=== PATIENT | female | born 1990 | race Caucasian/White ===

== ENCOUNTER 2016-07-12 09:45 | Outpatient (CLI) | payer OTHER | END 2016-07-12 09:46 | disposition home or self-care (01) | DX: Z36 Encounter for antenatal screening of mother (principal) ==

== ENCOUNTER 2016-08-27 10:01 | Outpatient (CLI) | payer OTHER | END 2016-08-27 10:02 | disposition home or self-care (01) | DX: Z3A.34 34 weeks gestation of pregnancy (principal) ==

== ENCOUNTER 2016-09-11 23:15 | Outpatient (CLI) | payer OTHER ==
[2016-09-12] MEDS ORDERED: TERBUTALINE 1 MG/ML VIAL SUBQ ONE (00:04)
[2016-09-12 00:13] VITALS: BP 120/72
[2016-09-12 00:35] LABS: BILIRUBIN,URINE NEGATIVE (NEGATIVE); PH,URINE 6.5 PH (5.0-7.5)
[2016-09-12 00:43] LABS: UA CHARGE (STRIP ONLY) YES; UR CULTURE IF IND NOT INDICATED
== END 2016-09-12 00:42 | disposition home or self-care (01) ==
LOC: WFO 23:15 → OB 23:17 → WFO 09-12 00:42
PROVIDERS: ATTEND Obstetrics & Gynecology
DX: O47.03 False labor before 37 completed weeks of gestation, third trimester (principal); Z3A.36 36 weeks gestation of pregnancy
CPT/HCPCS: 59025; 81001; 81003; 87086; 87797; 96372; 99212

== ENCOUNTER 2016-10-01 23:55 | Outpatient (CLI) | payer OTHER ==
[2016-10-02 00:06] VITALS: BP 107/69
== END 2016-10-02 01:27 | disposition home or self-care (01) ==
LOC: WFO 23:55 → OB 23:56 → WFO 10-02 01:27
PROVIDERS: ATTEND Obstetrics & Gynecology
DX: O47.1 False labor at or after 37 completed weeks of gestation (principal); Z3A.39 39 weeks gestation of pregnancy
CPT/HCPCS: 99213

== ENCOUNTER 2016-10-03 13:48 | Outpatient (CLI) | payer OTHER ==
[2016-10-03 14:04] VITALS: BP 119/73
== END 2016-10-03 14:55 | disposition home or self-care (01) ==
LOC: WFO 13:48 → OB 13:49 → WFO 14:55
PROVIDERS: ATTEND Obstetrics & Gynecology
DX: Z34.83 Encounter for supervision of other normal pregnancy, third trimester (principal)
CPT/HCPCS: 99213

== ENCOUNTER 2016-10-09 21:32 | Outpatient (CLI) | payer OTHER ==
[2016-10-10 00:27] VITALS: BP 111/64
== END 2016-10-10 00:55 | disposition home or self-care (01) ==
LOC: WFO 21:32 → OB 21:34 → WFO 10-10 00:55
PROVIDERS: ATTEND Obstetrics & Gynecology
DX: Z34.83 Encounter for supervision of other normal pregnancy, third trimester (principal)
CPT/HCPCS: 99213

== ENCOUNTER 2016-10-10 08:25 | Inpatient (IN) | payer OTHER ==
[2016-10-10] MEDS ORDERED: SODIUM CHLORIDE FLUSH 0.9% 10 ML SYRINGE IVP PRN (08:46)
[2016-10-10] MEDS ORDERED: LIDOCAINE 1% 50 ML MDV ONE ×2 (08:49→09:04)
[2016-10-10] MEDS ORDERED: OXYTOCIN 10 UNIT/ML VIAL ONE (08:49)
[2016-10-10] MEDS ORDERED: OXYTOCIN/LACTATED RINGERS 250 ML IV ONE (08:51)
[2016-10-10] MEDS ORDERED: LACTATED RINGERS 1,000 ML IV SCH (09:00)
[2016-10-10 09:38] LABS: BASOPHILS # (AUTO) 0.1 10^3/uL (0.0-0.1); BASOPHILS % (AUTO) 0.5 %; EOSINOPHILS # (AUTO) 0.2 10^3/uL (0.0-0.7); EOSINOPHILS % (AUTO) 1.4 %; HCT - HEMATOCRIT 33.8 % (37.0-47.0); HGB - HEMOGLOBIN 11.1 g/dL (12.0-16.0); LYMPHOCYTES # (AUTO) 1.8 10^3/uL (1.5-3.5); LYMPHOCYTES % (AUTO) 11.1 %; MEAN CORPUSCULAR HEMOGLOBIN 26.9 pg (27.0-31.0); MEAN CORPUSCULAR HGB CONC 32.9 g/dL (32.0-36.0); MONOCYTES # (AUTO) 0.8 10^3/uL (0.0-1.0); MONOCYTES % (AUTO) 5.3 %; NEUTROPHILS # (AUTO) 13.1 10^3/uL (1.5-6.6); NEUTROPHILS % (AUTO) 81.7 %; RED BLOOD COUNT 4.12 10^6/uL (4.20-5.40); RED CELL DISTRIBUTION WIDTH 13.8 % (12.0-15.0)
--- NOTE | 2016-10-10 09:38 | HISTORY & PHYSICAL EXAMINATION ---
DATE OF ADMISSION: 10/10/2016 IDENTIFICATION: A 26-year-old G4, P1-1-1-2, with a 40 and 3/7 week intrauterine . EDC is with a 9-week ultrasound consistent with dates, LMP 01/01/2016. HISTORY OF PRESENT ILLNESS: This is a patient of [facility] who presented today with complaints of contractions. Initial cervical examination showed she was 9 cm dilated. The patient wa s actually here earlier, about 7 hours earlier she was 2 cm. She was discharged to home and returned. Currently, the baby's heart tones are in the 110s, with moderate long-term variability. She is contr acting approximately every 3-4 minutes. She desires natural delivery without an epidural. So far, paulie padmaja reports her membranes are intact and does not recall any vaginal bleeding. PAST MEDICAL HISTORY: None. PAST SURGICAL HISTORY: Upper lip for tumor at age 2. MEDICATIONS: Prenatals. ALLERGIES: NO KNOWN DRUG ALLERGIES. SOCIAL HISTORY: She is currently not smoking. She is a former smoker and quit less than a year ago. S he has daughters, Aden and Chris, and this is a female fetus with the anticipated name of Franco. PAST OBSTETRICAL HISTORY 1. Elective . 2. Spontaneous vaginal deliveries, the first one at 35 weeks, the second one at 41 weeks, largest bab y weighing 6 pounds 13 ounces. PAST GYNECOLOGIC HISTORY: She denies any abnormal Pap smears or sexually transmitted diseases. FAMILY HISTORY: Father had lymphoma. REVIEW OF SYSTEMS: Negative unless otherwise stated. OBJECTIVE VITAL SIGNS: Stable. She was afebrile. GENERAL: The patient is a well-developed, well-nourished female in some apparent distress d uring labor. She does feel pain appropriate. ABDOMEN: Gravid, nontender. Estimated weight is 7-1/2 to 8 pounds. LABORATORY DATA: labs show that 1 hour GTT is 107. Antibody screen is negative. Chlamydia an d gonorrhea are both negative. Quad screen is positive for trisomy 18. Blood type is O positive. Rube lla is immune, hepatitis B surface antigen is nonreactive, RPR is nonreactive, GBS is negative. ASSESSMENT 1. A 26-year-old G4, P1-1-1-2 with a 40 and 3/7 week intrauterine . 2. Active labor. PLAN 1. Admit. 2. CBC, type and hold. 3. Expect spontaneous vaginal delivery. 4. Routine care. JOB #: [id number] EXT JOB #:[id number]
[2016-10-10] MEDS ORDERED: MAGNESIUM HYDROXIDE 2,400 MG/30 ML UDC PO PRN (10:48)
[2016-10-10] MEDS ORDERED: SIMETHICONE CHEW 80 MG TABLET PO PRN (10:48)
[2016-10-10] MEDS ORDERED: WITCH HAZEL/GLYCERIN 1 EACH MED..PAD TOP PRN (10:48)
[2016-10-10] MEDS ORDERED: HYDROCORTISONE 1% CREAM 28 GM TUBE PR PRN (10:48)
[2016-10-10] MEDS ORDERED: OXYTOCIN 10 UNIT/ML VIAL IM ONE (10:48)
[2016-10-10] MEDS: CELECOXIB 100 MG CAPSULE PO SCH ×2 (11:38→21:05)
[2016-10-10] MEDS: HYDROcod/ACETAM 5/325 MG TABLET PO PRN ×2 (12:13→20:29)
[2016-10-10] MEDS ORDERED: SODIUM CHLORIDE FLUSH 0.9% 10 ML SYRINGE IVP SCH (14:00)
[2016-10-10] MEDS: DOCUSATE SODIUM 100 MG CAPSULE PO SCH (21:05)
[2016-10-11] MEDS: HYDROcod/ACETAM 5/325 MG TABLET PO PRN ×3 (00:39→20:05)
[2016-10-11] MEDS: CELECOXIB 100 MG CAPSULE PO SCH ×2 (08:36→20:59)
[2016-10-11] MEDS: DOCUSATE SODIUM 100 MG CAPSULE PO SCH ×2 (08:36→20:59)
--- NOTE | 2016-10-11 11:07 | PROVIDER PROGRESS NOTE ---
Subjective - Prog Note Date Prog Note Date: 10/11/16 Prog Note Time: 11:05 - Subjective Pt reports feeling: Improved Subjective: Late note. Saw patient this AM at about 9:30. Patient sitting in bed, changing baby's diaper, breast feeding baby. Sister Afshin at bedside. Patient has more pain with breast feeding. Took a vicodin. Bleeding decreasing. Ambulating and tolerating a regular diet. No nausea or vomiting. Able to void and happy she is now completely emptying her bladder. Two older children did require phototherapy for hyperbilirubinemia. Current Medications - Current Medications Current Medications: Routine Celebrex. PRN Tylenol and vicodin. Objective - Vital Signs/Intake & Output Reviewed Vital Signs: Yes Vital Signs: Vital Signs x48h Temp Pulse Resp BP Pulse Ox 10/11/16 07:46 97.5 F L 79 16 108/68 10/11/16 05:00 97.5 F L 70 16 105/69 98 - Objective General Appearance: positive: No acute distress Abdomen: positive: Non-tender Neurologic/Psychiatric: positive: Oriented x3 - Lab Results Fish Bones: 10/10/16 08:52 Assessment/Plan - Problem List (1) Vaginal delivery Impression: 26 yo S/p 10/10/2016 Normal recovery, doing well Routine care Discharge to home either later this PM or tomorrow, pending on baby's bilirubin Follow up with myself at [facility] in 6 weeks for a routine exam Call if worsening fevers, chills, vaginal bleeding or abdominal pain Rx written for home (vicodin, ibuprofen)
[2016-10-11] MEDS: ACETAMINOPHEN 325 MG TABLET PO PRN (17:21)
[2016-10-12 07:51] VITALS: BP 109/73
[2016-10-12] MEDS: ACETAMINOPHEN 325 MG TABLET PO PRN ×2 (07:52→12:14)
[2016-10-12] MEDS: HYDROcod/ACETAM 5/325 MG TABLET PO PRN (07:53)
[2016-10-12] MEDS: CELECOXIB 100 MG CAPSULE PO SCH (09:15)
[2016-10-12] MEDS: DOCUSATE SODIUM 100 MG CAPSULE PO SCH (09:15)
--- NOTE | 2016-10-12 10:33 | PROVIDER PROGRESS NOTE ---
Subjective - Prog Note Date Prog Note Date: 10/12/16 Prog Note Time: 10:31 - Subjective Pt reports feeling: Improved (Pt is breast feeding with out difficulty. Pain is 2/10) Objective - Vital Signs/Intake & Output Reviewed Vital Signs: Yes Vital Signs: Vital Signs x48h Temp Pulse Resp BP Pulse Ox 10/12/16 07:50 36.8 C 89 19 109/73 98 - Objective General Appearance: positive: No acute distress, Alert Respiratory: positive: Chest non-tender, No respiratory distress Cardiovascular: positive: Regular rate & rhythm, No murmur, No gallop Abdomen: positive: Non-tender, Nml bowel sounds, Mass (U-2) Back: negative: CVA tenderness (R), CVA tenderness (L) Extremities: negative: Calf tenderness, Shabana's sign/cords - Lab Results Fish Bones: 10/10/16 08:52 Assessment/Plan - Problem List (1) Vaginal delivery Impression: Pt is doing well Discharge Meds: Lanie Lewis
--- NOTE | 2016-10-12 10:41 | Discharge Plan ---
Discharge Plan Disposition: 01 Home, Self Care Condition: Good Diet: Regular Activity Restrictions: No Restrictions Shower Restrictions: No Driving Restrictions: No Weight Bearing: Full Weight No Smoking: If you smoke, Please STOP! Call for help.
--- NOTE | 2016-10-12 13:54 | Labor Flowsheet ---
Labor Flowsheet Datetime Report Generated by CPN: 10/12/2016 13:54 Datetime: 10/12/2016 07:41 VITAL SIGNS NBP Sys/Kaylie/Mean (mmHg): 109 : 73 : 81 Pulse: 85 COMMUNICATION LaborFlag: Labor Datetime: 10/12/2016 07:40 Temperature (F): 96.4 Temperature (C): 35.8 Temperature (C): 35.8 Datetime: 10/11/2016 07:37 SpO2 (%): 98 Datetime: 10/10/2016 10:20 STAGE 2 Pushing: Urge to Push; Involuntary Pushing Pushing Position: Pushing with Contractions; Pushing Lithotomy Pushing Progress: Descent with Pushing Datetime: 10/10/2016 10:00 Stage of : Labor UTERINE ACTIVITY Monitor Mode: External Frequency (min): 2-3 Quality: Strong Duration (sec): 60 Pattern: Normal: <= 5 Contractions in 10 Minutes Resting Tone (Palpate): Relaxed ASSESSMENT A Monitor Mode: External US FHR Baseline Rate : 140 FHR Baseline Changes: No Baseline Change Variability: Moderate 6-25 bpm Accelerations: 15X15 Decelerations: Variable Category: Category I VAGINAL EXAM Dilatation (cm): 10.0 Effacement (%): 100 Station: 2 Exam by: Dr. Krause Datetime: 10/10/2016 09:30 Membrane Status: Intact Vaginal Bleeding: Normal Show PATIENT CARE Comfort Measures: Breathing/Relaxation Datetime: 10/10/2016 09:00 Provider Reviewed Strip: Yes Strip Reviewed by: Dr. Krause
--- NOTE | 2016-11-03 18:45 | DELIVERY NOTE ---
Delivery Note - Instructions [place]/Slash: -Left hand click circles element as positive or present. -Right hand click slashes element as negative or not present. - Labor Labor: positive: Spontaneous - Delivery Method Infant Delivery Method: positive: Spontaneous vaginal delivery - Presentation Presentation: positive: Vertex, OA - occiput anterior - Nuchal Cord Nuchal Cord: positive: None - Amniotic Fluid Description Amniotic Fluid Description: positive: Clear - Episiotomy Type Episiotomy Type: positive: None - Laceration Laceration: positive: None - Delivery Outcome Delivery Outcome: positive: Livebirth - : positive: Placed in direct skin contact with mother sex: positive: Female : 9 : 9 - Cord Cord: positive: 3 vessels - Placenta Placenta: positive: Intact, Spontaneous - Estimated Blood Loss Estimated Blood Loss (in cc): 250 - Post Delivery Events Post Delivery Events: positive: No post delivery events - Delivery Comments (Free Text/Narrative) Delivery Comments (Free Text/Narrative): 26 yo with a 40w3d IUP presented in active labor. Initial RN CVE 9 cm. The patient spontaneously delivered (no epidural) a single viable female fetus "Franco". FOB Olimar present; friend Bhavana and daughter Nikko present for part of delivery. Apgars 9/9. Perineum intact without lacerations. Placenta delivered spontaneously, intact with 3VC. No complications. EBL 250 mL.
--- NOTE | 2016-11-13 15:56 | DISCHARGE SUMMARY ---
DATE OF ADMISSION: 10/10/2016 DATE OF DISCHARGE: 10/12/2016 ADMITTING DIAGNOSES: 1. A 40.3 weeks gestation. 2. Contractions. 3. Advanced dilatation. DISCHARGE DIAGNOSES: 1. A 40.3 weeks gestation. 2. Contractions. 3. Advanced dilatation. PROCEDURE: Spontaneous vaginal delivery. PRESENTING HISTORY: The patient is a 26-year-old G4, P1-1-1-2, who is 40.3 weeks gestational age. EDC was 10/07/2016. LMP 01/01/2016, confirmed with ultrasound at 9 weeks. She was seen earlier the day of admission, roughly 7 hours prior at which time her cervix was 2 cm. She was sent home. She presented back with contractions every 3 to 4 minutes with a cervical dilatation of roughly 9 cm. The patient requested to do her delivery vaginally without an epidural. Her OB history is positive for a delivery at 35 weeks, and then again at 41 weeks. Her physical examination showed a cervix which was 9 cm, 100% effaced. LABORATORY: On admission her white count was 16.0, hemoglobin was 11.1, hematocrit was 33.8, and platelets were 233. HOSPITAL COURSE: The patient admitted, allowed to labor, and very soon after admission delivered a live female , 's 9 and 9 weighing 7 pounds 10 ounces. The was delivered occiput anterior without the need of an epidural. She had no lacerations or episiotomy. Her course was unremarkable. Her diet was advanced. She was discharged to home on discharge medications of Percocet and Motrin. Mastitis, breast infection, contraception, as well as endometritis were all discussed with the patient. She was recommended to remain at pelvic rest for 6 weeks following delivery. JOB #: [id number] EXT JOB #:[id number] ELIECER
== END 2016-10-12 13:50 | disposition home or self-care (01) | DRG 775 ==
LOC: OB 08:25 → WFO 08:25 → OB 08:46
PROVIDERS: ADMIT Obstetrics & Gynecology; ATTEND Obstetrics & Gynecology
PROC: 10E0XZZ Delivery of Products of Conception, External Approach (ICD-10-PCS; principal; 2016-10-10)
DX: O48.0 Post-term pregnancy (principal); Z3A.40 40 weeks gestation of pregnancy; Z37.0 Single live birth
CPT/HCPCS: 85025; 99211; 99213

== ENCOUNTER 2016-11-27 09:41 | Outpatient (CLI) | payer OTHER | END 2016-11-27 09:42 | disposition home or self-care (01) | LOC: LAB 09:41 | PROVIDERS: ATTEND Obstetrics & Gynecology | DX: Z30.09 Encounter for other general counseling and advice on contraception (principal) | CPT/HCPCS: 36415; 84702 ==

== ENCOUNTER 2017-03-11 16:00 | Outpatient (CLI) | payer OTHER | END 2017-03-11 16:01 | disposition home or self-care (01) | LOC: LAB.R 16:00 | PROVIDERS: ATTEND Obstetrics & Gynecology | DX: R30.0 Dysuria (principal) | CPT/HCPCS: 81001; 87077; 87086 ==

== ENCOUNTER 2018-03-01 11:18 | Emergency (ER) | payer MEDICAID, OTHER ==
[2018-03-01] MEDS ORDERED: CLINDAMYCIN 150 MG CAPSULE PO STA (12:09)
[2018-03-01] MEDS ORDERED: BUPIVACAINE 0.5%-EPI 1:200000 PF 10 ML VIAL SUBQ STA (12:09)
--- NOTE | 2018-03-01 12:11 | ED Physician Documentation ---
PD HPI HEENT - Stated complaint Stated Complaint: SWOLLEN MOUTH - Chief complaint Chief Complaint: Heent - History obtained from History obtained from: Patient - History of Present Illness Timing - onset: Other (She is a long-standing implants on the right mandible and over the last couple of days it has become tender and swollen with jaw swelling as well. No fevers. No possibility of .) Review of Systems Constitutional: denies: Fever, Chills Ears: denies: Ear pain Nose: denies: Rhinorrhea / runny nose, Congestion Throat: reports: Dental pain / toothache. 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 - Present Medications Home Medications: Ambulatory Orders Medication Instructions Recorded Confirmed Clindamycin HCl [Clindamycin 150MG 2 tab PO QID #80 capsule 03/01/18 CAP] Oxycodone HCl/Acetaminophen 1 - 2 each PO Q6H PRN #14 tablet 03/01/18 [Percocet 5-325 mg Tablet] - Allergies Allergies/Adverse Reactions: Allergies Allergy/AdvReac Type Severity Reaction Status Date / Time No Known Drug Allergies Allergy Verified 01/31/16 10:57 - Social History Does the pt smoke?: Yes Smoking Status: Current every day smoker Does the pt drink ETOH?: No Does the pt have substance abuse?: No - Immunizations Immunizations are current?: Yes PD ED PE NORMAL - Vitals Vital signs reviewed: Yes - General General: Alert and oriented X 3, No acute distress - HEENT HEENT: Other (There is right facial swelling emanating from a abscess on the gumline related to a R mandibular premolar. Mild trismus, no submandibular swelling.) - Neck Neck: Supple, no meningeal sign, No bony TTP, No adenopathy - Neuro Neuro: Alert and oriented X 3, Normal speech Results - Vitals Vitals: Vital Signs - 24 hr 03/01/18 03/01/18 11:32 12:43 Temperature 36.5 C Heart Rate 101 H 145 H Respiratory 18 24 Rate Blood Pressure 126/90 H O2 Saturation 100 98 Oxygen O2 Source Room air Procedures - Abscess I&D (location) Dental R mandibular Preparation: Marcaine 0.5%, With epi (both local and inferior alveolar block) Incision: Incised with scalpel, Loculations broken. No: Purulent drainage, Irrigated, Packed Other: Antibiotic prescribed Departure - Departure Disposition: 01 Home, Self Care Clinical Impression: Dental abscess Condition: Good Record reviewed to determine appropriate education?: Yes Instructions: ED Dental Abscess Facial Cellulitis Prescriptions: Clindamycin HCl [Clindamycin 150MG CAP] 2 tab PO QID #80 capsule Oxycodone HCl/Acetaminophen [Percocet 5-325 mg Tablet] 1 - 2 each PO Q6H PRN #14 tablet PRN Reason: pain Comments: Followup with Dr Fausto ANDERSON, return if worse.
[2018-03-01 13:12] VITALS: BP 162/96
== END 2018-03-01 13:09 | disposition home or self-care (01) ==
LOC: ED 11:18
DX: K04.7 Periapical abscess without sinus (principal); F17.200 Nicotine dependence, unspecified, uncomplicated
CPT/HCPCS: 41800; 99283; A9270

== ENCOUNTER 2018-03-04 15:48 | Emergency (ER) | payer MEDICAID ==
--- NOTE | 2018-03-04 17:45 | ED Physician Documentation ---
PD HPI URI - Stated complaint Stated Complaint: SOA/CP - Chief complaint Chief Complaint: Resp - History obtained from History obtained from: Patient - History of Present Illness Timing - onset: How many weeks ago (has had nasal congestion with some green drainage for a week and also now some cough and dyspnea, with increasing wheezing. Has history of asthma, and feeling that the illness, along with her dog, are flaring the asthma. She has had the dog for 6 months or more without these symptoms this bad so feeling illness/allergies contributing as well.) Timing duration: Days Timing details: Gradual onset, Still present Associated symptoms: Nasal congestion, Rhinorrhea (purulent), Dyspnea. No: Fever, Sore throat, Swollen nodes Contributing factors: COPD / asthma. No: Sick contact, Immunocompromised Similar symptoms before: Has not had sx before Recently seen: Not recently seen Review of Systems Constitutional: denies: Fever, Chills, Myalgias Nose: reports: Rhinorrhea / runny nose, Congestion, Sinus pressure / pain Throat: denies: Sore throat Cardiac: denies: Chest pain / pressure Respiratory: reports: Dyspnea, Cough, Wheezing GI: denies: Abdominal Pain, Nausea, Vomiting, Diarrhea Skin: denies: Rash, Lesions PD PAST MEDICAL HISTORY - Past Medical History Past Medical History: No Cardiovascular: None Respiratory: Asthma Neuro: None Endocrine/Autoimmune: None - Past Surgical History Past Surgical History: Yes 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 - Present Medications Home Medications: Ambulatory Orders Medication Instructions Recorded Confirmed Clindamycin HCl [Clindamycin 150MG 2 tab PO QID #80 capsule 03/01/18 CAP] Oxycodone HCl/Acetaminophen 1 - 2 each PO Q6H PRN #14 tablet 03/01/18 [Percocet 5-325 mg Tablet] Albuterol Sulf [Ventolin Hfa 1 - 2 puffs INH Q4HR PRN #1 inhaler 03/04/18 Inhaler] Cephalexin [Keflex] 500 mg PO QID #24 capsule 03/04/18 Dexamethasone [Decadron] 4 mg PO DAILY #5 tablet 03/04/18 Oxycodone HCl/Acetaminophen 1 each PO Q6H PRN #15 tablet 03/04/18 [Percocet 5-325 mg Tablet] - Allergies Allergies/Adverse Reactions: Allergies Allergy/AdvReac Type Severity Reaction Status Date / Time No Known Drug Allergies Allergy Verified 03/04/18 15:57 - Social History Does the pt smoke?: Yes Smoking Status: Current every day smoker Does the pt drink ETOH?: Yes Does the pt have substance abuse?: No Substance Use and Type: Cocaine/Crack - Immunizations Immunizations are current?: No Immunizations: TDAP >10years/unknown PD ED PE NORMAL - Vitals Vital signs reviewed: Yes - General General: Alert and oriented X 3, No acute distress, Well developed/nourished - HEENT HEENT: Ears normal, Pharynx benign, Other (left sinus tender to percussion) - Neck Neck: Supple, no meningeal sign, No adenopathy - Cardiac Cardiac: RRR, No murmur - Respiratory Respiratory: No: Clear bilaterally (diffuse wheezing without coarse sounds. ) - Abdomen Abdomen: Soft, Non tender - Derm Derm: Normal color, Warm and dry, No rash - Extremities Extremities: No tenderness to palpate, Normal ROM s pain, No edema, No calf tenderness / cord - Neuro Neuro: Alert and oriented X 3, No motor deficit, Normal speech (able to talk in complete sentences) Results - Vitals Vitals: Oxygen O2 Source Room air PD MEDICAL DECISION MAKING - ED course Complexity details: re-evaluated patient (improved breathing with neb treatment. ), considered differential, d/w patient Departure - Departure Disposition: 01 Home, Self Care Clinical Impression: Chest tightness Dyspnea Qualifiers: Dyspnea type: shortness of breath Qualified Code(s): R06.02 - Shortness of breath; R06.00 - Dyspnea, unspecified; R06.01 - Orthopnea Sinusitis, acute Qualifiers: Sinusitis location: maxillary Recurrence: non-recurrent Qualified Code(s): J01.00 - Acute maxillary sinusitis, unspecified Condition: Stable Record reviewed to determine appropriate education?: Yes Instructions: ED Dyspnea Shortness of Breath Prescriptions: Albuterol Sulf [Ventolin Hfa Inhaler] 1 - 2 puffs INH Q4HR PRN #1 inhaler PRN Reason: Shortness Of Air/Wheezing Cephalexin [Keflex] 500 mg PO QID #24 capsule Dexamethasone [Decadron] 4 mg PO DAILY #5 tablet Oxycodone HCl/Acetaminophen [Percocet 5-325 mg Tablet] 1 each PO Q6H PRN #15 tablet PRN Reason: Pain Comments: Sorry for the delay in treatment here in the ER as we were unusually busy. The symptoms you are having could potentially be a cyst or reaction or allergy to the antibiotic. I do not think the infection is extending into the throat or chest. I would have you change from the clindamycin to cephalexin for the infection. Add Decadron for inflammation daily for the next 5 days. Use an albuterol inhaler 2-3 puffs 4 times a day for the next several days to week. Continue your pain medications as needed. Recheck if not improving over the next couple of days. Follow-up with a dentist as planned. Discharge Date/Time: 03/04/18 19:45
[2018-03-04] MEDS ORDERED: ALBUTEROL NEB 2.5 MG/3 ML INH STA (18:19)
[2018-03-04] MEDS ORDERED: DEXAMETHASONE 10 MG/ML VIAL PO STA (18:20)
[2018-03-04] MEDS ORDERED: oxyCODONE 5 MG TABLET PO STA (18:20)
[2018-03-04] MEDS ORDERED: cephALEXin 250 MG CAPSULE PO STA (18:20)
[2018-03-04 19:45] VITALS: BP 138/96
== END 2018-03-04 19:45 | disposition home or self-care (01) ==
LOC: ED 15:48
DX: J01.00 Acute maxillary sinusitis, unspecified (principal); R06.02 Shortness of breath; F17.200 Nicotine dependence, unspecified, uncomplicated; J45.909 Unspecified asthma, uncomplicated
CPT/HCPCS: 93005; 94640; 99283; A9270; 94664

== ENCOUNTER 2019-02-03 08:56 | Emergency (ER) | payer MEDICAID ==
[2019-02-03] MEDS ORDERED: KETOROLAC 60 MG/2 ML VIAL IM STA (10:42)
[2019-02-03] MEDS ORDERED: DEXAMETHASONE 10 MG/ML VIAL PO STA (10:42)
[2019-02-03] MEDS ORDERED: CHERRY SYRUP 10 ML UDC PO ONE (10:42)
--- NOTE | 2019-02-03 10:45 | ED Physician Documentation ---
PD HPI BACK PAIN - Stated complaint Stated Complaint: BACK PAIN - Chief complaint Chief Complaint: Back Pain - History obtained from History obtained from: Patient - History of Present Illness Timing - onset: How many days ago (3) Timing - duration: Days (3) Timing - details: Abrupt onset, Still present Location: Lower, Left Quality: Pain, Spasm, Sharp, Similar to prior episodes Associated symptoms: No: Fever, Weakness, Numbness, Incontinent of urine, Unable to urinate, Hematuria, Incontinent of stool Improves with: Rest, Position Worsened by: Movement Similar symptoms before: Diagnosis (back spasm) Recently seen: Not recently seen - Additional information Additional information: Previously well 28-year-old female developed some acute spasm in her lower back radiating on the left side down the left leg. She developed this 2 days ago and she has had this similarly previously and she rested for a day expecting this to resolve she had some improvement yesterday and this morning she is worse again. She states this is the worst that she is ever had it. Review of Systems Constitutional: denies: Fever Eyes: denies: Decreased vision Ears: denies: Ear pain Nose: denies: Congestion Throat: denies: Sore throat Respiratory: denies: Cough GI: denies: Nausea, Vomiting : denies: Dysuria, Frequency Skin: denies: Rash Musculoskeletal: reports: Back pain. 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 - Present Medications Home Medications: Ambulatory Orders Medication Instructions Recorded Confirmed Clindamycin HCl [Clindamycin 150MG 2 tab PO QID #80 capsule 03/01/18 CAP] Oxycodone HCl/Acetaminophen 1 - 2 each PO Q6H PRN #14 tablet 03/01/18 [Percocet 5-325 mg Tablet] Albuterol Sulf [Ventolin Hfa 1 - 2 puffs INH Q4HR PRN #1 inhaler 03/04/18 Inhaler] Cephalexin [Keflex] 500 mg PO QID #24 capsule 03/04/18 Oxycodone HCl/Acetaminophen 1 each PO Q6H PRN #15 tablet 03/04/18 [Percocet 5-325 mg Tablet] dexAMETHasone [Decadron] 4 mg PO DAILY #5 tablet 03/04/18 Cyclobenzaprine [Flexeril] 10 mg PO TID PRN #20 tablet 02/03/19 Hydrocodone/Acetaminophen 1 - 2 each PO Q6H PRN #14 tablet 02/03/19 [Hydrocodon-Acetaminophen 5-325] - Allergies Allergies/Adverse Reactions: Allergies Allergy/AdvReac Type Severity Reaction Status Date / Time No Known Drug Allergies Allergy Verified 02/03/19 09:06 - Social History Does the pt smoke?: Yes Smoking Status: Current every day smoker Does the pt drink ETOH?: Yes Does the pt have substance abuse?: No - Immunizations Immunizations are current?: No Immunizations: TDAP >10years/unknown PD ED PE NORMAL - General General: Alert and oriented X 3, Well developed/nourished, Other (appears to be in pain with hammer heater tone and flat affect. ) - HEENT HEENT: Atraumatic, PERRL, EOMI - Neck Neck: Supple, no meningeal sign - Respiratory Respiratory: No respiratory distress - Back Back: No CVA TTP, Other (There is tenderness to the paraspinous muscles on the left side extending into the sciatic notch. 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, No motor deficit, No sensory deficit, Normal speech Eye Opening: Spontaneous Motor: Obeys Commands Verbal: Oriented GCS Score: 15 - Psych Psych: Normal mood Results - Vitals Vitals: Vital Signs - 24 hr 02/03/19 02/03/19 09:02 11:36 Temperature 35.8 C L 36.6 C Heart Rate 106 H 93 Respiratory 16 12 Rate Blood Pressure 128/95 H 125/83 H O2 Saturation 97 95 Oxygen O2 Source Room air - Labs Labs: Laboratory Tests 02/03/19 12:15 Urine Color DARK YELLOW Urine Clarity CLOUDY Urine pH 6.0 Ur Specific [place] 1.025 Urine Protein NEGATIVE Urine Glucose (UA) NEGATIVE Urine Ketones NEGATIVE Urine Occult Blood NEGATIVE Urine Nitrite NEGATIVE Urine Bilirubin NEGATIVE Urine Urobilinogen 0.2 (NORMAL) Ur Leukocyte Esterase NEGATIVE Ur Microscopic Review INDICATED Urine Culture Comments Not Reportable Urine HCG, Qual NEGATIVE PD MEDICAL DECISION MAKING - ED course Complexity details: reviewed results, re-evaluated patient, considered differential, d/w patient ED course: 28 y/o female with acute back spams is administered toradal and decadron in the ED and we will place her on some pain medication and muscle relaxant. She has back pain and nausea and a urine is processed and extends the patient's ED visit. Departure - Departure Disposition: Home, Self Care Clinical Impression: Sciatica Qualifiers: Laterality: left Qualified Code(s): M54.32 - Sciatica, left side Condition: Stable Instructions: ED Sciatica Follow-Up: [facility] [Provider Group] Prescriptions: Cyclobenzaprine [Flexeril] 10 mg PO TID PRN #20 tablet PRN Reason: Spasms Hydrocodone/Acetaminophen [Hydrocodon-Acetaminophen 5-325] 1 - 2 each PO Q6H PRN #14 tablet PRN Reason: pain
[2019-02-03 13:17] LABS: BILIRUBIN,URINE NEGATIVE (NEGATIVE); GLUCOSE, URINE (UA) NEGATIVE (NEGATIVE); KETONES,URINE (UA) NEGATIVE (NEGATIVE); LEUKOCYTE ESTERASE, URINE NEGATIVE (NEGATIVE); NITRITE,URINE NEGATIVE (NEGATIVE); OCCULT BLOOD,URINE NEGATIVE (NEGATIVE); PROTEIN,URINE NEGATIVE (NEGATIVE); UROBILINOGEN,URINE 0.2 (NORMAL) E.U./dL (NORMAL)
[2019-02-03 13:19] LABS: CLARITY,URINE CLOUDY (CLEAR); HCG UR QUAL NEGATIVE
[2019-02-03 13:40] LABS: BACTERIA,URINE Moderate /HPF (None Seen); RBC,URINE 0-5 /HPF (0-5); SQUAMOUS EPITHELIAL CELL,UR MOD Squamous (<= Few)
[2019-02-03] MEDS ORDERED: HYDROcod/ACETAM 5/325 MG TABLET PO STA (13:43)
[2019-02-03 13:53] VITALS: BP 115/66
== END 2019-02-03 13:55 | disposition home or self-care (01) ==
LOC: ED 08:56
DX: M54.32 Sciatica, left side (principal); F17.200 Nicotine dependence, unspecified, uncomplicated
CPT/HCPCS: 81001; 81025; 96372; 99283; 99284; A9270; 81003; 87086

== ENCOUNTER 2019-11-28 14:52 | Emergency (ER) | payer MEDICAID ==
[2019-11-28 15:02] VITALS: BP 129/87
--- NOTE | 2019-11-28 15:41 | ED Physician Documentation ---
History of Present Illness - Stated complaint Stated Complaint: LT ARM TINGLING/FINGER NUMBNESS - Chief complaint Chief Complaint: Ext Problem - History obtained from History obtained from: Patient - Additonal information Additional information: Patient comes emergency department complaining of left arm numbness that started this morning. Patient states that at first, she is noticed some numbness in her fingers and her hand. She thought her watch was too tight so she took it off but it did not help. Patient states that the numbness has progressed throughout the day and now involves her shoulder. Patient states she does not have any history of shoulder problems. She has a history of "neck problems" for a number of years but no specific injury. She states that for the last several days she has had a lot of tightness on the left side of her neck and has not been able to turn her head all the way to the right because it hurts and feels tight. Patient states, however, that the symptoms seemed a little better today. She states this is never happened to her before. No sensory loss anywhere else. Patient denies any motor loss, though she states it is somewhat difficult to do things with her left arm and hand because she cannot feel that she is doing. No other focal neurologic deficits. No other complaints at this time. Patient denies any repetitive movements with her left upper extremity. No history of impingement syndromes such as carpal tunnel. Review of Systems Ten Systems: 10 systems reviewed and negative Constitutional: reports: Reviewed and negative Eyes: reports: Reviewed and negative Ears: reports: Reviewed and negative Nose: reports: Reviewed and negative Throat: reports: Reviewed and negative Cardiac: reports: Reviewed and negative Respiratory: reports: Reviewed and negative GI: reports: Reviewed and negative : reports: Reviewed and negative Skin: reports: Reviewed and negative Musculoskeletal: reports: Neck pain Neurologic: reports: Numbness Psychiatric: reports: Reviewed and negative Endocrine: reports: Reviewed and negative Immunocompromised: reports: Reviewed and negative PD PAST MEDICAL HISTORY - Past Medical History Past Medical History: Yes Cardiovascular: None Respiratory: Asthma Neuro: None Endocrine/Autoimmune: None - Past Surgical History Past Surgical History: Yes 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 Medications Home Medications: Ambulatory Orders Medication Instructions Recorded Confirmed Clindamycin HCl [Clindamycin 150MG 2 tab PO QID #80 capsule 03/01/18 CAP] Oxycodone HCl/Acetaminophen 1 - 2 each PO Q6H PRN #14 tablet 03/01/18 [Percocet 5-325 mg Tablet] Albuterol Sulf [Ventolin Hfa 1 - 2 puffs INH Q4HR PRN #1 inhaler 03/04/18 Inhaler] Cephalexin [Keflex] 500 mg PO QID #24 capsule 03/04/18 Oxycodone HCl/Acetaminophen 1 each PO Q6H PRN #15 tablet 03/04/18 [Percocet 5-325 mg Tablet] dexAMETHasone [Decadron] 4 mg PO DAILY #5 tablet 03/04/18 Cyclobenzaprine [Flexeril] 10 mg PO TID PRN #20 tablet 02/03/19 Hydrocodone/Acetaminophen 1 - 2 each PO Q6H PRN #14 tablet 02/03/19 [Hydrocodon-Acetaminophen 5-325] Cyclobenzaprine [Flexeril] 10 mg PO TID PRN #20 tablet 11/28/19 Ibuprofen [Motrin] 800 mg PO Q8H PRN #30 tablet 11/28/19 - Allergies Allergies/Adverse Reactions: Allergies Allergy/AdvReac Type Severity Reaction Status Date / Time No Known Drug Allergies Allergy Verified 11/28/19 15:01 - Social History Does the pt smoke?: Yes Smoking Status: Current every day smoker Does the pt drink ETOH?: Yes Does the pt have substance abuse?: No - Immunizations Immunizations are current?: No Immunizations: TDAP >10years/unknown - POLST Patient has POLST: No PD ED PE NORMAL - Vitals Vital signs reviewed: Yes - General General: Alert and oriented X 3, No acute distress - HEENT HEENT: Atraumatic, PERRL, EOMI, Moist mucous membranes - Neck Neck: Supple, no meningeal sign, Other (Patient has some degree of muscle spasm along her left trapezius distribution. Palpation of the left trapezius causes tingling and "an electric shock" feeling down the left arm during exam, patient reports.) - Cardiac Cardiac: RRR, No murmur - Respiratory Respiratory: Clear bilaterally - Abdomen Abdomen: Soft, Non tender, Non distended - Back Back: No spinal TTP - Derm Derm: Normal color, Warm and dry, No rash - Extremities Extremities: No deformity, No tenderness to palpate - Neuro Neuro: Alert and oriented X 3, Other (Generalized loss of sensation to soft, sharp, and temperature sensation, with patchy breakthrough of at least partially intact sensation throughout the patient's LUE. Sensation returns about 4 cm from C-spine in trapezius) - Psych Psych: Normal mood, Normal affect Results - Vitals Vitals: Oxygen O2 Source Room air - Rads (name of study) c-spine XR series Radiology: Final report received, EMP read indepedently, See rad report (unremarkable except for reverse lordosis, indicative of cervical muscle spasm) L shoulder XR series Radiology: Final report received, EMP read indepedently, See rad report (unremarkable.) PD MEDICAL DECISION MAKING - ED course Complexity details: reviewed results, re-evaluated patient, considered differential, d/w patient ED course: Given the distribution of the patient's sensory loss and palpation of the trapezius causing tingling, I suspected nerve impingement syndrome. Patient was also very low risk for CVA and had no other neurologic symptoms. Patient was sent for x-rays of the neck and left shoulder, which were unremarkable. We discussed that anti-inflammatories, as well as potentially a muscle relaxant or steroid would be most helpful for impingement. We have also discussed the need for follow-up if the patient's symptoms do not resolve over the next week. Patient is agreeable to the plan. Departure - Departure Disposition: 01 Home, Self Care Clinical Impression: Cervical nerve root impingement, Trapezius muscle spasm Condition: Stable Instructions: Impingement Syndrome, ED Spasm Neck No Injury Prescriptions: Cyclobenzaprine [Flexeril] 10 mg PO TID PRN #20 tablet PRN Reason: Spasms Ibuprofen [Motrin] 800 mg PO Q8H PRN #30 tablet PRN Reason: PAIN &/OR FEVER Comments: Your x-rays show signs of muscle spasm in your neck. This is indicated by the curvature of your spine, which is the reverse of what it should be. The radiologist has noted that this is usually seen in cases of muscle spasm. As s uch, it is very likely that the numbness and tingling in your arm is due to compression from spasm muscles of the nerves as they exit your neck. The best treatment for this is anti-inflammatories and something to relax her muscles. Massage and stretching is also very helpful. Please follow-up with your primary care physician if your symptoms continue for more than the next several days, as you may need to be referred for physical therapy or discuss whether MRI is appropriate. Discharge Date/Time: 11/28/19 16:44
--- NOTE | 2019-11-28 16:22 | XRAY Report ---
PROCEDURE: Shoulder 3 View LT INDICATIONS: pain/paresthesias L shoulder/arm TECHNIQUE: 3 views of the shoulder were acquired. COMPARISON: Correlation is made with the complete cervical spine radiographs 11/28/2019. FINDINGS: Bones: No fractures or dislocations. No suspicious bony lesions. Visualized ribs appear intact. Soft tissues: No suspicious soft tissue calcifications. The visualized lung demonstrates a normal a ppearance. IMPRESSION: No significant plain film abnormality of the shoulder is seen. If it would be helpful for clinical management decision making, please consider a dedicated shoulder MRI for further evaluation (assuming that there is no contraindication). If there is strong clinical concern for labral pathology, then please consider performing this according to the arthrogram protoc ol. Reviewed by: Aquiles Gonzalez MD on 11/28/2019 3:21 PM [facility] Approved by: Aquiles Gonzalez MD on 11/28/2019 3:21 PM [facility] Station ID: [id number]
--- NOTE | 2019-11-28 16:24 | XRAY Report ---
PROCEDURE: Cervical Spine 2 View INDICATIONS: pain/paresthesias TECHNIQUE: 3 view(s) of the cervical spine were acquired. COMPARISON: Correlation is made with the accompanying shoulder plain films. FINDINGS: Bones: No fractures or dislocations to the C7 level. The lateral masses of C1 appear intact on the odontoid view. No suspicious bony lesions. There is reversal of the normal cervical lordosis, with the apex at the C5-C6 level. The disc heights are well preserved. Soft tissues: No prevertebral soft tissue swelling. The visualized lung demonstrates a normal appea danisha. IMPRESSION: Reversal of the normal cervical lordosis is seen. This is commonly observed in patients with muscular spasm. Reviewed by: Aquiles Gonzalez MD on 11/28/2019 3:22 PM [facility] Approved by: Aquiles Gonzalez MD on 11/28/2019 3:22 PM [facility] Station ID: [id number]
== END 2019-11-28 16:44 | disposition home or self-care (01) ==
LOC: ED 14:52
DX: G56.92 Unspecified mononeuropathy of left upper limb (principal); M62.838 Other muscle spasm; M54.2 Cervicalgia; F17.200 Nicotine dependence, unspecified, uncomplicated
CPT/HCPCS: 72040; 99284

== ENCOUNTER 2019-12-28 10:51 | Outpatient (CLI) | payer MEDICAID ==
[2019-12-28 11:10] LABS: BASOPHILS # (AUTO) 0.1 10^3/uL (0.0-0.1); BASOPHILS % (AUTO) 0.6 %; EOSINOPHILS # (AUTO) 0.4 10^3/uL (0.0-0.7); EOSINOPHILS % (AUTO) 3.6 %; HGB - HEMOGLOBIN 13.9 g/dL (12.0-16.0); LYMPHOCYTES # (AUTO) 3.1 10^3/uL (1.5-3.5); LYMPHOCYTES % (AUTO) 28.5 %; MEAN CORPUSCULAR HEMOGLOBIN 27.8 pg (27.0-31.0); MEAN CORPUSCULAR HGB CONC 31.5 g/dL (32.0-36.0); MEAN CORPUSCULAR VOLUME 88.2 fL (81.0-99.0); MEAN PLATELET VOLUME 10.3 fL (7.9-10.8); MONOCYTES # (AUTO) 0.9 10^3/uL (0.0-1.0); MONOCYTES % (AUTO) 8.5 %; NEUTROPHILS # (AUTO) 6.4 10^3/uL (1.5-6.6); NEUTROPHILS % (AUTO) 58.3 %; PLT - PLATELET COUNT 283 10^3/uL (130-450); RED CELL DISTRIBUTION WIDTH 13.3 % (12.0-15.0); WHITE BLOOD COUNT 10.9 x10^3/uL (4.8-10.8)
[2019-12-28 11:28] LABS: ALBUMIN 4.6 g/dL (3.2-5.5); ALBUMIN/GLOBULIN RATIO 1.4 (1.0-2.2); ALKALINE PHOSPHATASE 115 IU/L (42-121); ALT ALANINE AMINOTRANSFERASE 75 IU/L (10-60); AST ASPARTATE AMINOTRANSFERASE 47 IU/L (10-42); BILIRUBIN,TOTAL 0.9 mg/dL (0.2-1.0); BUN - BLOOD UREA NITROGEN 7 mg/dL (6-20); CALCIUM 9.4 mg/dL (8.5-10.3); CARBON DIOXIDE - CO2 27 mmol/L (21-32); CHLORIDE 103 mmol/L (101-111); CHOL/HDL RATIO 4.8 (<4.4); CHOLESTEROL 182 mg/dL; CREATININE 0.7 mg/dL (0.4-1.0); GLUCOSE 97 mg/dL (70-100); HDL CHOLESTEROL 38 mg/dL; LDL CHOLESTEROL,CALCULATED 109 mg/dL; LDL/HDL RATIO 2.9 (<4.4); SODIUM 137 mmol/L (135-145); TOTAL PROTEIN 7.9 g/dL (6.7-8.2); VLDL CHOLESTEROL 35 mg/dL
[2019-12-28 11:39] LABS: FREE T3 4.04 pg/mL (2.5-3.9)
--- NOTE | 2019-12-28 11:58 | XRAY Report ---
PROCEDURE: ThoracoLumbar 2 View INDICATIONS: LAB DRAW,CHRONIC BACK PAIN TECHNIQUE: 2 views acquired of the thoracolumbar spine. COMPARISON: None FINDINGS: Bones: Normal vertebral body height and alignment. Degenerative changes in the thoracic spine. Mild d isc height loss at L4-L5 and L5-S1 with trace facet hypertrophy. Sacroiliac joints are normal. Soft tissues: No suspicious soft tissue calcifications. Included portions of the lungs are clear. I ntrauterine device contraceptive noted. IMPRESSION: Mild degenerative changes in the lower lumbar spine. No malalignment or scoliosis. Reviewed by: Harley Drummond MD on 12/28/2019 11:57 AM PDT Approved by: Harley Drummond MD on 12/28/2019 11:57 AM PDT Station ID: [id number]
== END 2019-12-28 10:52 | disposition home or self-care (01) ==
LOC: LAB 10:51 → DI 10:52
PROVIDERS: ATTEND Nurse Practitioner
DX: Z00.00 Encounter for general adult medical examination without abnormal findings (principal); M51.36 Other intervertebral disc degeneration, lumbar region; M51.34 Other intervertebral disc degeneration, thoracic region; R63.5 Abnormal weight gain; Z82.49 Family history of ischemic heart disease and other diseases of the circulatory system; Z13.228 Encounter for screening for other metabolic disorders; Z13.29 Encounter for screening for other suspected endocrine disorder
CPT/HCPCS: 36415; 72080; 80050; 80061; 83721; 84481

== ENCOUNTER 2020-04-05 12:08 | Outpatient (CLI) | payer MEDICAID | END 2020-04-05 12:09 | disposition home or self-care (01) | LOC: COV 12:08 | PROVIDERS: ATTEND Family Medicine | DX: R05 Cough (principal); R06.02 Shortness of breath; R06.2 Wheezing; R68.83 Chills (without fever); J02.9 Acute pharyngitis, unspecified; R19.7 Diarrhea, unspecified; R43.8 Other disturbances of smell and taste; R09.81 Nasal congestion; J34.89 Other specified disorders of nose and nasal sinuses; R11.2 Nausea with vomiting, unspecified; Z20.828 Contact with and (suspected) exposure to other viral communicable diseases ==

== ENCOUNTER 2020-09-29 09:22 | Emergency (ER) | payer OTHER, MEDICAID ==
[2020-09-29] MEDS ORDERED: MORPHINE 10 MG/ML VIAL IVP STA (09:45)
[2020-09-29] MEDS ORDERED: DEXAMETHASONE 10 MG/ML VIAL IVP STA (09:49)
--- NOTE | 2020-09-29 09:49 | ED Physician Documentation ---
History of Present Illness - Stated complaint Stated Complaint: LT LEG PX/NUMB - Chief complaint Chief Complaint: Back Pain - History obtained from History obtained from: Patient - Additonal information Additional information: 30-year-old woman with 3 years of chronic back pain presents with groin numbness and incontinence of stool this morning. Patient states that she woke up with severe lower back pain and was on her way to the bathroom when she involuntarily pooped on herself. This is never happened before. She also is endorsing numbness today groin and left leg radiating downward from the gluteal region. Denies fevers, recent traumatic injury. She saw Dr. Velez this past friday and was given a steroid dose back and muscle relaxer script without relief. Review of Systems Constitutional: denies: Fever : reports: Other (fecal incontinence) Musculoskeletal: reports: Back pain Neurologic: reports: Numbness. 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 - Present Medications Home Medications: Ambulatory Orders Medication Instructions Recorded Confirmed Ibuprofen [Motrin] 800 mg PO Q8H PRN #30 tablet 11/28/19 09/29/20 Methocarbamol [Robaxin-750] 750 mg PO PRN PRN 09/29/20 09/29/20 Methylprednisolone [Medrol Dose 1 each PO .PACKAGEINSTRUCTIONS 09/29/20 09/29/20 Pack] - Allergies Allergies/Adverse Reactions: Allergies Allergy/AdvReac Type Severity Reaction Status Date / Time No Known Drug Allergies Allergy Verified 09/29/20 09:30 - Social History Does the pt smoke?: Yes Smoking Status: Current every day smoker Does the pt drink ETOH?: Yes Does the pt have substance abuse?: No - Immunizations Immunizations are current?: No Immunizations: TDAP >10years/unknown - POLST Patient has POLST: No PD ED PE NORMAL - Vitals Vital signs reviewed: Yes - General General: Alert and oriented X 3, Other (moderate distress) - HEENT HEENT: Atraumatic, PERRL, EOMI - Neck Neck: No bony TTP - Back Back: Other (midlumbar/sacral ttp) - Derm Derm: Normal color, Warm and dry - Extremities Extremities: No deformity, Other (2+ BL DP pulses. LLE diminished strength compared to R. ) - Neuro Neuro: Alert and oriented X 3, Other (perineal numbness on exam. ) - Psych Psych: Normal mood, Normal affect Results - Vitals Vitals: Vital Signs - 24 hr 09/29/20 09/29/20 09:26 10:10 Temperature 36.4 C L Heart Rate 109 H 99 Respiratory 16 18 Rate Blood Pressure 150/100 H 150/109 H O2 Saturation 97 96 Oxygen O2 Source Room air - Labs Labs: Laboratory Tests 09/29/20 09/29/20 09:50 09:50 WBC 17.5 H RBC 4.80 Hgb 13.3 Hct 41.5 MCV 86.5 MCH 27.7 MCHC 32.0 RDW 13.2 Plt Count 335 MPV 10.1 Neut # (Auto) 15.5 H Lymph # (Auto) 1.1 L [place] # (Auto) 0.8 Eos # (Auto) 0.0 Baso # (Auto) 0.0 Absolute Nucleated RBC 0.00 Nucleated RBC % 0.0 Sodium 139 Potassium 3.9 Chloride 104 Carbon Dioxide 23 Anion Gap 12.0 BUN 13 Creatinine 0.6 Estimated GFR (MDRD) 117 Glucose 113 H Calcium 9.7 Total Bilirubin 0.5 AST 27 ALT 37 Alkaline Phosphatase 106 Total Protein 8.1 Albumin 4.5 Globulin 3.6 Albumin/Globulin Ratio 1.3 Lipase 19 L PD MEDICAL DECISION MAKING - ED course ED course: 10am- patient threw up. will give liliana d/w Dr. Lawrence for ED transfer for emergent MRI Departure - Departure Disposition: 02 Transfer Acute Care Hosp Clinical Impression: Incontinent of feces, Numbness of perineum, Back pain Condition: Serious
[2020-09-29 09:56] LABS: BASOPHILS % (AUTO) 0.2 %; EOSINOPHILS % (AUTO) 0.2 %; HCT - HEMATOCRIT 41.5 % (37.0-47.0); HGB - HEMOGLOBIN 13.3 g/dL (12.0-16.0); LYMPHOCYTES # (AUTO) 1.1 10^3/uL (1.5-3.5); LYMPHOCYTES % (AUTO) 6.2 %; MEAN CORPUSCULAR HEMOGLOBIN 27.7 pg (27.0-31.0); MEAN CORPUSCULAR VOLUME 86.5 fL (81.0-99.0); MEAN PLATELET VOLUME 10.1 fL (7.9-10.8); MONOCYTES # (AUTO) 0.8 10^3/uL (0.0-1.0); MONOCYTES % (AUTO) 4.5 %; NEUTROPHILS # (AUTO) 15.5 10^3/uL (1.5-6.6); NEUTROPHILS % (AUTO) 88.5 %; PLT - PLATELET COUNT 335 10^3/uL (130-450); RED CELL DISTRIBUTION WIDTH 13.2 % (12.0-15.0); WHITE BLOOD COUNT 17.5 x10^3/uL (4.8-10.8)
[2020-09-29] MEDS ORDERED: ONDANSETRON 4 MG/2 ML VIAL IVP STA (10:02)
[2020-09-29 10:09] LABS: ALBUMIN 4.5 g/dL (3.2-5.5); ALBUMIN/GLOBULIN RATIO 1.3 (1.0-2.2); BILIRUBIN,TOTAL 0.5 mg/dL (0.2-1.0); CALCIUM 9.7 mg/dL (8.5-10.3); CREATININE 0.6 mg/dL (0.4-1.0); POTASSIUM 3.9 mmol/L (3.5-5.0); TOTAL PROTEIN 8.1 g/dL (6.7-8.2)
[2020-09-29 11:14] VITALS: BP 132/91
[2020-09-29 11:23] LABS: B. PARAPERTUSSIS- RESP PCR PAN NOT DETECTED; B. PERTUSSIS- RESP PCR PANEL NOT DETECTED; C. PNEUMONIAE- RESP PCR PANEL NOT DETECTED; CORONAVIRUS 229E-RESP PCR NOT DETECTED; CORONAVIRUS HKU1-RESP PCR NOT DETECTED; CORONAVIRUS NL63-RESP PCR NOT DETECTED; CORONAVIRUS OC43-RESP PCR NOT DETECTED; HUMAN METAPNEUMOVIRUS NOT DETECTED; INFLUENZA A- RESP PCR PANEL NOT DETECTED; INFLUENZA B - RESP PCR PANEL NOT DETECTED; M. PNEUMONIAE- RESP PCR PANEL NOT DETECTED; PARAINFLUENZA VIRUS 1 NOT DETECTED; PARAINFLUENZA VIRUS 2 NOT DETECTED; PARAINFLUENZA VIRUS 3 NOT DETECTED; PARAINFLUENZA VIRUS 4 NOT DETECTED; RHINOVIRUS/ENTEROVIRUS DETECTED; RSV- RESP PCR PANEL NOT DETECTED; SARS-CoV-2 -RESP PCR PANEL NOT DETECTED
== END 2020-09-29 11:10 | disposition short-term general hospital (02) ==
LOC: ED 09:22
DX: R15.9 Full incontinence of feces (principal); R11.10 Vomiting, unspecified; R20.0 Anesthesia of skin; F17.200 Nicotine dependence, unspecified, uncomplicated; Z20.822 Contact with and (suspected) exposure to COVID-19
CPT/HCPCS: 0202U; 36415; 80053; 83690; 85025; 96374; 96375; 99284; 99285

== ENCOUNTER 2020-09-29 11:09 | Outpatient (CLI) | payer MEDICAID, OTHER | END 2020-09-29 11:10 | disposition short-term general hospital (02) | LOC: EMS 11:09 | PROVIDERS: ATTEND Emergency Medicine | DX: M54.9 Dorsalgia, unspecified (principal); R15.9 Full incontinence of feces; Z74.01 Bed confinement status | CPT/HCPCS: A0425; A0426 ==

== ENCOUNTER 2020-10-04 13:46 | Emergency (ER) | payer OTHER, MEDICAID ==
--- OUTSIDE RECORDS SUMMARY | 2020-10-04 13:50 | EXTERNAL MEDICAL SUMMARY RPT | Continuity of Care Document ---
:1990 Demographics Phone Unavailable Preferred Language Unknown Marital Status Unknown Religion Affiliation Unknown Race Unknown Ethnic Group Unknown Author Organization [facility] Address [address] [place] [address] Phone Allergies Encounters Medications Problems Results
--- OUTSIDE RECORDS SUMMARY | 2020-10-04 13:54 | EXTERNAL MEDICAL SUMMARY RPT | Continuity of Care Document ---
:1990 Demographics Phone Unavailable Preferred Language Unknown Marital Status Unknown Gnosticism Affiliation Unknown Race Unknown Ethnic Group Unknown Author Organization [facility] Address [address] [place] [address] Phone Allergies Encounters Medications Problems Results
[2020-10-04] MEDS ORDERED: HYDROmorphone 1 MG/ML CARPUJECT IM STA (14:30)
[2020-10-04] MEDS ORDERED: KETOROLAC 60 MG/2 ML VIAL IM STA (14:30)
--- NOTE | 2020-10-04 14:32 | ED Physician Documentation ---
PD HPI BACK PAIN - Stated complaint Stated Complaint: BACK PX - Chief complaint Chief Complaint: Back Pain - History obtained from History obtained from: Patient - Additional information Additional information: 30-year-old woman who was had on and off problems with back pain has had a week of very severe back pain associated with urinary incontinence and some areas of both numbness and of hyperesthesia in both legs. She was seen by my partner a few days ago and sent [facility] where an MRI was done. We will try to get the formal results but her description was multilevel herniated disks and was told that she may need surgery but subsequently was told that medical management would be trialed. She has severe pain uncontrolled by oxycodone, methylprednisolone, Tylenol and methocarbamol. She denies fevers. 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 - Present Medications Home Medications: Ambulatory Orders Medication Instructions Recorded Confirmed Methocarbamol [Robaxin-750] 750 mg PO PRN PRN 09/29/20 10/04/20 Methylprednisolone [Medrol Dose 1 each PO .PACKAGEINSTRUCTIONS 09/29/20 10/04/20 Pack] Acetaminophen [Tylenol Extra 500 mg PO 10/04/20 Strength] Famotidine [Acid-Pep] 20 mg PO 10/04/20 oxyCODONE [Roxicodone] 5 mg PO Q4-6H 10/04/20 10/04/20 - Allergies Allergies/Adverse Reactions: Allergies Allergy/AdvReac Type Severity Reaction Status Date / Time No Known Drug Allergies Allergy Verified 10/04/20 13:58 - Social History Does the pt smoke?: Yes Smoking Status: Current every day smoker Does the pt drink ETOH?: Yes Does the pt have substance abuse?: No - Immunizations Immunizations are current?: No Immunizations: TDAP >10years/unknown - POLST Patient has POLST: No PD ED PE NORMAL - Vitals Vital signs reviewed: Yes - General General: Alert and oriented X 3, Other (She appears quite uncomfortable, any motion makes her wince.) - HEENT HEENT: PERRL, EOMI - Neck Neck: Supple, no meningeal sign, No bony TTP - Cardiac Cardiac: RRR, No murmur - Respiratory Respiratory: No respiratory distress, Clear bilaterally - Abdomen Abdomen: Soft, Non tender - Back Back: No CVA TTP, No spinal TTP - Derm Derm: Normal color, Warm and dry - Extremities Extremities: Other (She is hyperesthetic to the back of the left calf. Almost insensate to the front of both thighs. Normal patellar reflex on the right. Absent patellar reflex on the left.) - Neuro Neuro: Alert and oriented X 3, Normal speech - Psych Psych: Normal mood, Normal affect Results - Vitals Vitals: Vital Signs - 24 hr 10/04/20 10/04/20 13:50 16:31 Temperature 36.6 C Heart Rate 108 H 62 Respiratory 20 16 Rate Blood Pressure 142/109 H 133/88 H O2 Saturation 100 97 Oxygen O2 Source Room air - Labs Labs: Laboratory Tests 10/04/20 10/04/20 10/04/20 16:20 16:20 16:20 WBC 17.3 H RBC 4.94 Hgb 13.7 Hct 42.5 MCV 86.0 MCH 27.7 MCHC 32.2 RDW 13.2 Plt Count 370 MPV 10.2 Neut # (Auto) 12.7 H Lymph # (Auto) 3.2 [place] # (Auto) 1.1 H Eos # (Auto) 0.1 Baso # (Auto) 0.1 Absolute Nucleated RBC 0.00 Nucleated RBC % 0.0 Sodium 134 L Potassium 3.8 Chloride 100 L Carbon Dioxide 24 Anion Gap 10.0 BUN 16 Creatinine 0.6 Estimated GFR (MDRD) 117 Glucose 107 H Calcium 9.3 Serum HCG, Qual NEGATIVE PD MEDICAL DECISION MAKING - ED course ED course: She was able to pull up my chart and showed me the results of recent MRI showing severe spinal stenosis at L5-S1 with effacement of the left neuroforamina at that level. Also a chart note from the physician stating that felt without Specific intervention she would improve within 1 to 2 months. Her pain is uncontrolled despite a fairly aggressive medical management though. 30-year-old woman with known herniated disc causing severe spinal stenosis presents with intractable pain, I discussed her case with Dr. Mainor Maldonado, the on-call neurosurgeon in [facility] and feels like she probably should come down for some sort of interventional management. Recommends 10 mg of Decadron in the interim. [facility] is tight on beds but they will call me back. Graciously accepted by Dr. Patty Mcintosh to [facility] at approximately 4 PM and cobras were completed. She is stable for transport. Departure - Departure Disposition: 02 Transfer Acute Care Hosp Clinical Impression: Lumbar radiculopathy, acute Spinal stenosis Qualifiers: Spinal region: lumbosacral Qualified Code(s): M48.07 - Spinal stenosis, lumbosacral region Condition: Stable
[2020-10-04] MEDS ORDERED: DEXAMETHASONE 20 MG/5 ML VIAL IVP ONE (15:40)
[2020-10-04] MEDS ORDERED: DEXAMETHASONE 10 MG/ML VIAL IVP STA (15:42)
[2020-10-04] MEDS ORDERED: HYDROmorphone 1 MG/ML CARPUJECT IVP STA ×2 (15:47→16:36)
[2020-10-04 16:35] VITALS: BP 133/88
[2020-10-04 16:35] LABS: BASOPHILS # (AUTO) 0.1 10^3/uL (0.0-0.1); BASOPHILS % (AUTO) 0.3 %; EOSINOPHILS # (AUTO) 0.1 10^3/uL (0.0-0.7); EOSINOPHILS % (AUTO) 0.5 %; HCT - HEMATOCRIT 42.5 % (37.0-47.0); HGB - HEMOGLOBIN 13.7 g/dL (12.0-16.0); LYMPHOCYTES # (AUTO) 3.2 10^3/uL (1.5-3.5); LYMPHOCYTES % (AUTO) 18.3 %; MEAN CORPUSCULAR HEMOGLOBIN 27.7 pg (27.0-31.0); MEAN CORPUSCULAR HGB CONC 32.2 g/dL (32.0-36.0); MEAN PLATELET VOLUME 10.2 fL (7.9-10.8); MONOCYTES # (AUTO) 1.1 10^3/uL (0.0-1.0); MONOCYTES % (AUTO) 6.4 %; NEUTROPHILS # (AUTO) 12.7 10^3/uL (1.5-6.6); NEUTROPHILS % (AUTO) 73.5 %; PLT - PLATELET COUNT 370 10^3/uL (130-450); RED BLOOD COUNT 4.94 10^6/uL (4.20-5.40); RED CELL DISTRIBUTION WIDTH 13.2 % (12.0-15.0); WHITE BLOOD COUNT 17.3 x10^3/uL (4.8-10.8)
[2020-10-04 16:46] LABS: CALCIUM 9.3 mg/dL (8.5-10.3); CREATININE 0.6 mg/dL (0.4-1.0); POTASSIUM 3.8 mmol/L (3.5-5.0)
[2020-10-04 17:01] LABS: HCG,QUALITATIVE BLOOD NEGATIVE
[2020-10-04 17:34] LABS: B. PARAPERTUSSIS- RESP PCR PAN NOT DETECTED; B. PERTUSSIS- RESP PCR PANEL NOT DETECTED; C. PNEUMONIAE- RESP PCR PANEL NOT DETECTED; CORONAVIRUS 229E-RESP PCR NOT DETECTED; CORONAVIRUS HKU1-RESP PCR NOT DETECTED; CORONAVIRUS NL63-RESP PCR NOT DETECTED; CORONAVIRUS OC43-RESP PCR NOT DETECTED; HUMAN METAPNEUMOVIRUS NOT DETECTED; INFLUENZA A- RESP PCR PANEL NOT DETECTED; INFLUENZA B - RESP PCR PANEL NOT DETECTED; M. PNEUMONIAE- RESP PCR PANEL NOT DETECTED; PARAINFLUENZA VIRUS 1 NOT DETECTED; PARAINFLUENZA VIRUS 2 NOT DETECTED; PARAINFLUENZA VIRUS 3 NOT DETECTED; PARAINFLUENZA VIRUS 4 NOT DETECTED; RHINOVIRUS/ENTEROVIRUS NOT DETECTED; RSV- RESP PCR PANEL NOT DETECTED; SARS-CoV-2 -RESP PCR PANEL NOT DETECTED
== END 2020-10-04 17:42 | disposition short-term general hospital (02) ==
LOC: ED 13:46
DX: M51.16 Intervertebral disc disorders with radiculopathy, lumbar region (principal); M48.07 Spinal stenosis, lumbosacral region; Z20.822 Contact with and (suspected) exposure to COVID-19; F17.200 Nicotine dependence, unspecified, uncomplicated
CPT/HCPCS: 0202U; 36415; 80048; 84703; 85025; 96372; 96374; 96375; 96376; 99285; J1170

== ENCOUNTER 2020-10-04 16:55 | Outpatient (CLI) | payer OTHER, MEDICAID | END 2020-10-04 16:56 | disposition short-term general hospital (02) | LOC: EMS 16:55 | PROVIDERS: ATTEND Emergency Medicine | DX: M48.00 Spinal stenosis, site unspecified (principal) | CPT/HCPCS: A0425; A0426 ==

== ENCOUNTER 2021-01-24 19:30 | Outpatient (CLI) | payer OTHER ==
--- NOTE | 2021-01-24 20:56 | Ultrasound Report ---
PROCEDURE: Pelvic w/Transvaginal INDICATIONS: PELVIC PAIN TECHNIQUE: Real-time scanning was performed of the pelvic organs, with image documentation. Additional endovagi nal scanning was necessary due to incomplete visualization of the adnexal and endometrial structures by transabdominal scanning. COMPARISON: 09/08/2010 and 07/31/2010. FINDINGS: No pathologic free abdominal or pelvic fluid. Uterus: Uterus measures 8.8 x 4.6 x 6.1 cm in size. Heterogeneous myometrial echotexture is seen. 1 x 0.8 x 0.8 cm intramural fibroid is noted in right anterior myometrium. The endometrium measures betw een 6.9 to 10.7 mm in combined thickness. Intrauterine device is noted in its central endometrial lo cation. No gross endometrial mass or fluid. Ovaries: Right ovary measures 3.1 x 2.5 x 4 cm in size with a volume of 16.4 cc. Left ovary measures 3 x 1.9 x 3.4 cm in size with a volume of 10.2 cc. Mildly complex cystic structure is seen in right ovary measures 2 x 2 by 2.2 cm in size. No internal vascularity is seen. Normal arteriovenous flow is seen in bilateral ovaries. IMPRESSION: 1. Enlarged uterus with heterogeneous myometrial echotexture and tiny uterine fibroid as above. 2. Intrauterine device is seen in place. No gross endometrial mass or fluid. 3. Complex cyst or hemorrhagic cyst is seen in right ovary. No gross solid-appearing ovarian lesion. Reviewed by: mEmanuel Mills MD on 01/24/2021 8:55 PM PDT Approved by: Emmanuel Mills MD on 01/24/2021 8:55 PM PDT Station ID: [id number]
== END 2021-01-24 19:31 | disposition home or self-care (01) ==
LOC: DI 19:30
PROVIDERS: ATTEND Family Medicine
DX: D25.1 Intramural leiomyoma of uterus (principal); Z97.5 Presence of (intrauterine) contraceptive device; N83.291 Other ovarian cyst, right side; N85.2 Hypertrophy of uterus

== ENCOUNTER 2021-06-16 14:39 | Outpatient (CLI) | payer BC ==
--- NOTE | 2021-06-16 18:24 | Ultrasound Report ---
PROCEDURE: Pelvic w/Transvaginal INDICATIONS: RIGHT OVARIAN CYST TECHNIQUE: Real-time transabdominal scanning was performed of the pelvic organs, with image documentation. COMPARISON: 01/24/2021 FINDINGS: Uterus: Uterus is normal in size at 9.5 x 4.7 x 5.3 cm. There is a 1 cm intramural fibroid seen on t he right anteriorly. Endometrium measures 2 mm in combined thickness. An IUD is seen at the expected location. Ovaries: The right ovary measures 3 x 2.2 x 2.7 cm, with a calculated volume of 9.4 cc and the left ovary measures 3.6 x 2.4 x 2.8 cm, with a calculated volume of 12.7 cc and demonstrates a dominant fo llicle that measures up to 1.7 cm, which is considered to be within physiologic limits. No significa nt ovarian abnormalities are seen. There are more than 12 follicles seen on each side. No adnexal masses are seen. Other: No free pelvic fluid. Prominent uterine vessels can be seen. IMPRESSION: No abnormal ovarian cysts are now seen. The previously seen abnormal right ovarian cyst has resolved. More than 12 follicles can be seen involving each ovary. Please consider polycystic ovarian syndrome. IUD seen in place. Prominent uterine vessels are seen. Please consider pelvic varices. Reviewed by: Aquiles Gonzalez MD on 06/16/2021 5:22 PM [facility] Approved by: Aquiles Gonzalez MD on 06/16/2021 5:22 PM [facility] Station ID: [id number]
== END 2021-06-16 14:40 | disposition home or self-care (01) ==
LOC: DI 14:39
PROVIDERS: ATTEND Family Medicine
DX: Z97.5 Presence of (intrauterine) contraceptive device (principal); R93.89 Abnormal findings on diagnostic imaging of other specified body structures

== ENCOUNTER 2021-11-06 13:05 | Emergency (ER) | payer BC, OTHER ==
[2021-11-06] MEDS ORDERED: HYDROmorphone 1 MG/ML CARPUJECT IM STA (13:36)
[2021-11-06] MEDS ORDERED: ONDANSETRON 4 MG/2 ML VIAL IM STA (13:36)
--- NOTE | 2021-11-06 13:39 | ED Physician Documentation ---
PD HPI FOCAL NEURO - Stated complaint Stated Complaint: LOSS OF BALANCE,SPASMS - Chief complaint Chief Complaint: Neuro - History obtained from History obtained from: Patient - Additional information Additional information: 31-year-old woman developed back pain in September of last year. Subsequently diagnosed with cauda equina and sent to [place] where she had a L5-S1 laminectomy and partial discectomy. She had pain relief for some time but progressively as he has developed pain again and over the last week has developed Both bowel and urinary incontinence, Lack of proprioception in the legs, saddle anesthesia.She had an MRI done on October 18 of this year and she has results with her. The lumbar spine showed moderate stenosis at L5-S1 due to a combination of bulge and protrusion with epidural fibrosis and displacement of the descending S1 nerve roots and moderate neuroforaminal narrowing on the left L5-S1. At some point a few months ago she saw her neurosurgeon, Dr. Shaw in [place] and her understanding was that he thought this was "all in her head." So in late September she had an MRI of her head without acute process as well. Review of Systems Ten Systems: 10 systems reviewed and negative Constitutional: denies: Fever, Chills Cardiac: reports: Reviewed and negative Respiratory: reports: Reviewed and negative GI: reports: Reviewed and negative PD PAST MEDICAL HISTORY - Past Medical History Cardiovascular: None Respiratory: Asthma Neuro: None Endocrine/Autoimmune: None GI: None DIRECTOR WEB: None : None HEENT: None Psych: None Musculoskeletal: None - Past Surgical History Past Surgical History: Yes General: Other /DIRECTOR WEB: Other - Present Medications Home Medications: Ambulatory Orders Medication Instructions Recorded Confirmed methocarbamoL [Robaxin-750] 750 mg PO PRN PRN 09/29/20 10/04/20 methylPREDNISolone [Medrol Dose 1 each PO .PACKAGEINSTRUCTIONS 09/29/20 10/04/20 Pack] Acetaminophen [Tylenol Extra 500 mg PO 10/04/20 Strength] Famotidine [Acid-Pep] 20 mg PO 10/04/20 oxyCODONE [Roxicodone] 5 mg PO Q4-6H 10/04/20 10/04/20 predniSONE [Deltasone] 20 mg PO [id number] #21 tab 11/06/21 - Allergies Allergies/Adverse Reactions: Allergies Allergy/AdvReac Type Severity Reaction Status Date / Time No Known Drug Allergies Allergy Verified 11/06/21 13:16 - Social History Does the pt smoke?: Yes Smoking Status: Current every day smoker Does the pt drink ETOH?: Yes Does the pt have substance abuse?: No - Immunizations Immunizations are current?: No Immunizations: TDAP >10years/unknown - POLST Patient has POLST: No PD ED PE NORMAL - Vitals Vital signs reviewed: Yes - General General: Alert and oriented X 3, Other (uncomfortable) - HEENT HEENT: PERRL, EOMI - Neck Neck: Supple, no meningeal sign, No bony TTP - Back Back: No CVA TTP - Derm Derm: Normal color, Warm and dry - Neuro Neuro: Alert and oriented X 3, Normal speech, Other (Numb in the left leg, especially anterior thigh lateral calf with hyperreflexia throughout the lower extremities) Results - Vitals Vitals: Vital Signs - 24 hr 11/06/21 11/06/21 13:16 13:49 Temperature 37.0 C Heart Rate 101 H 92 Respiratory 18 18 Rate Blood Pressure 135/113 H 126/91 H O2 Saturation 99 99 Oxygen O2 Source Room air PD MEDICAL DECISION MAKING - ED course ED course: 31-year-old woman with an acute exacerbation of chronic low back pain. She does have some symptoms concerning for cauda equina, but recent MRI not particularly consistent with same. She plans to follow-up with her surgeon. She was medicated here with Dilaudid, Zofran, and prednisone. Departure - Departure Disposition: 01 Home, Self Care Clinical Impression: Acute exacerbation of chronic low back pain Condition: Good Record reviewed to determine appropriate education?: Yes Instructions: ED Neck Back Pain General Prescriptions: predniSONE [Deltasone] 20 mg PO [id number] #21 tab Comments: Follow-up with your surgeon, I would call to see if you can get a sooner appointment with them. Return for new or worsening symptoms.
[2021-11-06 13:59] VITALS: BP 126/91
[2021-11-06] MEDS ORDERED: predniSONE 20 MG TABLET PO STA (14:13)
== END 2021-11-06 14:32 | disposition home or self-care (01) ==
LOC: ED 13:05
DX: M54.50 Low back pain, unspecified (principal); G89.29 Other chronic pain; F17.200 Nicotine dependence, unspecified, uncomplicated
CPT/HCPCS: 96372; 99283; 99284; J1170; J7512